=== PATIENT | female | born 1990 | race Two or more races ===

== ENCOUNTER 2021-01-15 06:58 | Inpatient (IN) | payer MEDICAID ==
[2021-01-15] MEDS ORDERED: Misoprostol 50 MCG (1/2 of 100 MCG) Tab VAG ONE (07:41)
[2021-01-15] MEDS ORDERED: Misoprostol 100 MCG Tab PO ONE (08:00)
[2021-01-15] MEDS ORDERED: Sodium Chloride 0.9% 10 ML Syringe FLUSH PRN ×2 (08:18→10:28)
--- NOTE | 2021-01-15 08:28 | PCM.LDHP ---
L&D History of Present Illness - General Date of Service: 01/15/21 (PROM, GDM GHTN) Admit Problem/Dx: Patient Status Order with Admit Dx/Problem 01/15/21 08:18 Patient Status [ADT] Routine Admission Diagnosis/Problem Admission Diagnosis/Problem Source of Information: Patient History Limitations: Reports: No Limitations - History of Present Illness Introduction:: 30 year old 39 2/7 weeks presents with PROM. history of GDM, gestation hypertension. Was going to do induction today for medical conditions when she S ROM at home clear fluid at 0630. CE 2/80/0 mid position, reactive nst and BPP in process. GBS neg Covid neg Amniodure positive ABO O pos HIV neg Timing/Duration: Reports: minutes: (3-4) Location, : Reports: Abdomen Severity: Mild Improves with: Reports: None Worsens with: Reports: None - Related Data Allergies/Adverse Reactions: Allergies Allergy/AdvReac Type Severity Reaction Status Date / Time amoxicillin Allergy Severe Anaphylactic Verified 01/15/21 08:23 Shock sumatriptan Allergy Severe Anaphylactic Verified 01/15/21 08:23 Shock Home Medications: Home Meds Aspirin [Halfprin] 81 mg PO DAILY 01/15/21 [History] Vits #93/Iron Fum/FA [ Formula Tablet] 1 each PO DAILY 01/15/21 [History] Past Medical History 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 History: Reports: : 2 Para: 1 LMP (Approximate): (SHREYAS 01/20/21) Social & Family History - Tobacco Use Tobacco Use Status *Q: Former Tobacco User Used Tobacco, but Quit: No - Caffeine Use Caffeine Use: Reports: None - Recreational Drug Use Recreational Drug Use: No H&P Review of Systems - Review of Systems: Review Of Systems: See Below General: Reports: No Symptoms HEENT: Reports: No Symptoms Pulmonary: Reports: No Symptoms Cardiovascular: Reports: No Symptoms Gastrointestinal: Reports: No Symptoms Genitourinary: Reports: No Symptoms Musculoskeletal: Reports: No Symptoms Skin: Reports: No Symptoms Psychiatric: Reports: No Symptoms Neurological: Reports: No Symptoms Hematologic/Lymphatic: Reports: No Symptoms Immunologic: Reports: No Symptoms L&D Exam - Exam Exam: See Below - Vital Signs Vital Signs: Last Vital Signs Temp 98 F 01/15/21 07:30 Pulse 84 01/15/21 07:30 Resp 16 01/15/21 07:30 BP 142/97 H 01/15/21 07:30 Pulse Ox 94 L 01/15/21 07:30 Weight: 240 lb - OB Specific Contraction Duration (sec): 60 Contraction Frequency (min): x1 Contraction Intensity: Mild Heart Rate (FHR) Variability: Moderate (6-25 bmp) Presentation: Right Occiput Transverse (ROT) - Mariano Score Mariano Score Cervix Position: Midposition Mariano Score Consistency: Soft Mariano Score Effacement: >80% Mariano Score Dilation: 1-2 cm Mariano Score Infant's Station: -1 ,0 Mariano Score Total: 9 - Exam General: Alert, Oriented HEENT: PERRLA Lungs: Clear to Auscultation Cardiovascular: Regular Rate, Regular Rhythm GI/Abdominal Exam: Soft, Non-Tender Rectal Exam: Normal Exam Genitourinary: Normal external exam, Cervical dilitation, Cervical fluid Back Exam: Normal Inspection, Full Range of Motion Extremities: Normal Inspection, Non-Tender, Pedal Edema Skin: Warm Neurological: Cranial Nerves Intact, Reflexes Equal Bilateral, Normal Tone Psychiatric: Alert, Normal Affect, Normal Mood - Patient Data Lab Results Last 24 hrs: Laboratory Results - last 24 hr 01/15/21 01/15/21 01/15/21 Range/Units 07:09 07:09 07:20 WBC 10.2 (4.5-11.0) K/uL RBC 4.45 (3.30-5.50) M/uL Hgb 12.0 (12.0-15.0) g/dL Hct 36.1 (36.0-48.0) % MCV 81 (80-98) fL MCH 27 (27-31) pg MCHC 33 (32-36) % Plt Count 228 (150-400) K/uL Neut % (Auto) 69 H (36-66) % Lymph % (Auto) 22 L (24-44) % [place] % (Auto) 7 H (2-6) % Eos % (Auto) 1 L (2-4) % Baso % (Auto) 0 (0-1) % Urine Color Yellow (YELLOW) Urine Appearance Slightly cloudy A (CLEAR) Urine pH 7.0 (5.0-8.0) Ur Specific [place] 1.020 (1.008-1.030) Urine Protein 30 H (NEGATIVE) mg/dL Urine Glucose (UA) Negative (NEGATIVE) mg/dL Urine Ketones 15 H (NEGATIVE) mg/dL Urine Occult Blood Moderate H (NEGATIVE) Urine Nitrite Negative (NEGATIVE) Urine Bilirubin Negative (NEGATIVE) Urine Urobilinogen 0.2 (0.2-1.0) EU/dL Ur Leukocyte Esterase Negative (NEGATIVE) Urine RBC 20-30 H (0-5) Urine WBC 5-10 H (0-5) Ur Epithelial Cells Moderate Amorphous Sediment Rare Urine Bacteria Many Urine Mucus Not seen Membrane Rupture Positive H (NEGATIVE) SARS CoV-2 RNA Rapid DIETER 01/15/21 Range/Units 07:32 WBC (4.5-11.0) K/uL RBC (3.30-5.50) M/uL Hgb (12.0-15.0) g/dL Hct (36.0-48.0) % MCV (80-98) fL MCH (27-31) pg MCHC (32-36) % Plt Count (150-400) K/uL Neut % (Auto) (36-66) % Lymph % (Auto) (24-44) % [place] % (Auto) (2-6) % Eos % (Auto) (2-4) % Baso % (Auto) (0-1) % Urine Color (YELLOW) Urine Appearance (CLEAR) Urine pH (5.0-8.0) Ur Specific [place] (1.008-1.030) Urine Protein (NEGATIVE) mg/dL Urine Glucose (UA) (NEGATIVE) mg/dL Urine Ketones (NEGATIVE) mg/dL Urine Occult Blood (NEGATIVE) Urine Nitrite (NEGATIVE) Urine Bilirubin (NEGATIVE) Urine Urobilinogen (0.2-1.0) EU/dL Ur Leukocyte Esterase (NEGATIVE) Urine RBC (0-5) Urine WBC (0-5) Ur Epithelial Cells Amorphous Sediment Urine Bacteria Urine Mucus Membrane Rupture (NEGATIVE) SARS CoV-2 RNA Rapid DIETER Negative Result Diagrams: 01/15/21 07:20 - Problem List (1) Gestational diabetes SNOMED Code(s): 28835153 ICD Code: O24.419 - GESTATIONAL DIABETES MELLITUS IN , UNSP CONTROL Status: Acute Current Visit: Yes (2) Gestational hypertension SNOMED Code(s): 890934676 ICD Code: O13.9 - GESTATIONAL HTN W/O SIGNIFICANT PROTEINURIA, UNSP TRIMESTER Status: Acute Current Visit: Yes (3) PROM with onset of labor within 24 hours of rupture SNOMED Code(s): 887986333 ICD Code: O42.00 - RENA ROM, ONSET LABOR W/N 24 HR OF RUPT, UNSP WEEKS OF GEST Status: Acute Current Visit: Yes Qualifiers: PROM gestational age: full term Qualified Code(s): O42.02 - Full-term premature rupture of membranes, onset of labor within 24 hours of rupture Problem List Initiated/Reviewed/Updated: Yes Orders Last 24hrs: Active Orders 24 hr Category Date Time Status Patient Status [ADT] Routine ADT 01/15/21 08:18 Ordered Antiembolic Devices [RC] .Routine Care 01/15/21 08:20 Ordered Communication Order [RC] ASDIRECTED Care 01/15/21 08:18 Ordered Heart Tones [RC] PER UNIT ROUTINE Care 01/15/21 08:18 Ordered Non Stress Test [RC] Click to Edit Care 01/15/21 08:18 Ordered Notify Provider Vital Signs [RC] PRN Care 01/15/21 08:18 Ordered Notify Provider [RC] PRN Care 01/15/21 08:18 Ordered VTE/DVT Education [RC] Click to Edit Care 01/15/21 08:20 Ordered Vital Signs [RC] PER UNIT ROUTINE Care 01/15/21 08:18 Ordered BPP w NST [US] Routine Exams 01/15/21 07:52 Ordered Sodium Chloride 0.9% [Saline Flush] Med 01/15/21 08:18 Ordered 10 ml FLUSH ASDIRECTED PRN miSOPROStoL [Cytotec] Med 01/15/21 08:30 Active 25 mcg PO Q2H DVT/VTE Prophylaxis Reflex [OM.PC] Routine Oth 01/15/21 08:18 Ordered Saline Lock Insert [OM.PC] Routine Oth 01/15/21 08:18 Ordered Resuscitation Status Routine Resus Stat 01/15/21 08:18 Ordered Medication Orders Misoprostol (Misoprostol 25 Mcg (1/4 Of 100 Mcg) Tab) 25 mcg PO Q2H ALEIDA Sodium Chloride (Sodium Chloride 0.9% 10 Ml Syringe) 10 ml FLUSH ASDIRECTED PRN PRN Reason: Keep Vein Open Assessment/Plan Comment:: 01/15/21 30 year old 39 2/7 week IUP with PROM this morning at 0630. GDM, stable well controlled Gestation hypertension, protein in urine this morning, normal PLT will draw PIH labs Plan reactive nst bpp6/8 movement 8/10 miso orally 25 mcg every 2 hours until active labor epidural when ready plan for vaginal delivery
[2021-01-15] MEDS: Misoprostol 25 MCG (1/4 of 100 MCG) Tab PO SCH ×3 (08:40→14:42)
[2021-01-15] MEDS ORDERED: Lidocaine 1% 50 ML MDV ONE (10:13)
[2021-01-15] MEDS ORDERED: Naloxone 0.4 MG/ML SDV IVPUSH PRN (10:28)
[2021-01-15] MEDS ORDERED: diphenhydrAMINE 50 MG/ML SDV IVPUSH PRN ×2 (10:28)
[2021-01-15] MEDS ORDERED: Lactated Ringers 1,000 ML IV ONE (10:28)
[2021-01-15] MEDS ORDERED: ePHEDrine 50 MG/ML SDV IVPUSH PRN ×2 (10:28)
[2021-01-15] MEDS ORDERED: Ropivacaine 200 MG in Premix Bag 1 BAG EPIDUR SCH (10:30)
[2021-01-15] MEDS ORDERED: ePHEDrine 50 MG/ML SDV ONE (10:36)
[2021-01-15] MEDS ORDERED: Ondansetron 4 MG/2 ML SDV IVPUSH PRN (10:39)
--- NOTE | 2021-01-15 11:51 | US ---
BPP w NST INDICATION: GDM, gestational hypertension COMPARISON: None FINDINGS: Single live IUP in: Cephalic position. heart rate: 132 BPM. Biophysical profile score: 8/8. SIN: 8.6 cm. IMPRESSION: Normal biophysical profile score of 8/8. SIN is 8.6 cm
--- NOTE | 2021-01-15 12:28 | ANES ---
DATE OF SERVICE: 01/15/2021 INDICATIONS: Connor is a 30-year-old female in our Obstetric Unit with Nichole Melara CNM. I was asked to consult for labor epidural placement. Upon arrival, I discussed with the patient her past history as well as risks and benefits of the procedure and reviewed lab work, found no contraindication to epidural placement. At that time, I had her consent signed. TECHNIQUE: The patient was seated at the edge of the bed. Betadine prep x3 to lumbar region. Sterile drape was placed, 1% lidocaine skin wheal as well as deep at the L3-L4 region approximately. A 17-gauge Tuohy was placed to loss of resistance. Negative CSF, negative heme, negative paresthesia. I was able to thread the catheter to the tip of the needle and was not able to thread beyond that. Reassessed, loss of resistance was continued procedure. I removed the needle and catheter, prepared to access same level. 17- gauge Tuohy was placed to loss of resistance. Negative CSF, negative heme, negative paresthesia. I then placed the catheter at 12 cm. I removed the needle, a test dose of 3 mL of 1.5% lidocaine and 1:200,000 epinephrine, negative sequelae. Catheter was secured and I dosed it with 12 mL of 0.2% ropivacaine. I then began an infusion of the same 12 mL of 0.2% ropivacaine. She tolerated the procedure quite well. Please refer to nurse's notes for vital signs and neuro status, which were unchanged and within normal limits. I discussed with nurse what I had given. Eric Arias CRNA /[id number]
[2021-01-15] MEDS ORDERED: Lactated Ringers 1,000 ML IV SCH (12:30)
[2021-01-15] MEDS ORDERED: Ropivacaine 100 ML ONE (12:42)
[2021-01-15] MEDS ORDERED: Hydrocortisone 2.5% Crm 30 GM Tube TOP PRN (14:28)
[2021-01-15] MEDS ORDERED: Witch Hazel Medicated Pads 100/Jar TOP ONE (14:28)
[2021-01-15] MEDS ORDERED: Acetaminophen 325 MG Tab, 50 Tab Bulk Bottle PO PRN (14:31)
[2021-01-15] MEDS ORDERED: Ibuprofen 200 MG Tab, 24 Tab Bulk Bottle PO PRN (14:31)
--- NOTE | 2021-01-15 14:44 | PCM.DEL ---
L & D Note - General Info Date of Service: 01/15/21 Mother's Due Date: 01/20/21 - Delivery Note Labor: Spontaneous Cervical Ripening Method: Misoprostil Delivery Outcome: Livebirth Delivery Mode: Spontaneous Presentation: Right Occiput Transverse (ROT) Nuchal Cord: None Anesthesia Type: Epidural Amniotic Fluid Description: Clear Episiotomy Type: None Laceration: None Placenta: Intact, Spontaneous Cord: 3 Vessels Estimated Blood Loss: 100 Resuscitation Needed: Yes : Bulb Syringe, Stimulated, Warmed, [place] Used, Warmer Used Provider: Nichole Melara Score 1 min: 8 Score 5 min: 9 Post Delivery Events: Shoulder Dystocia Second Stage Interventions: Reports: Second Nurse Reviewed Heart Tones, Encouragement Given, Pushing, McRobert's Position, Pushing, Squat Bar Pulling on Sheet Delivery Comments (Free Text/Narrative):: 01/15/21 This 30 year old G2 now P2 who is 39 2/7 weeks gestation delivered at 1400 via in [place] then rotated to direct OA viable female over an intact perineum. There was a shoulder dystocia after delivery of the head. RN doing suprapubic pressure. Baby rotated to direct OA and pulled out, super tight fit. No nuchal cord, the cord was clamped and cut. Baby cried spontaneously and was taken to the warmer where she was dried and stimulated. Apgars of 8 and 9. No lacerations of the cervix, vagina, perineum or rectum. EBL 100cc Active management of the third stage was used. Mother and baby to post in stable condition. First stage 4171-4402 Second stage 1655-0434 third stage 5664-4176 weight 8-5 Induction Criteria - Mariano Score Mariano Score Dilation: 1-2 cm Mariano Score Effacement: >80% Mariano Score 's Station: -1 ,0 Mariano Score Consistency: Soft Mariano Score Cervix Position: Midposition Mariano Score Total: 9 Mariano Score Presenting Part: Reports: Cephalic - Augmentation Estimated Pelvis: Reports: Adequate Weight Estimated:: Reports: AGA Reassuring Monitoring Strip: Yes Absence of Tachy Systole: Yes - General Info Date of Service: 01/15/21 Admission Dx/Problem (Free Text): Patient Status Order with Admit Dx/Problem 01/15/21 08:18 Patient Status [ADT] Routine Admission Diagnosis/Problem Admission Diagnosis/Problem Functional Status: Reports: Pain Controlled - Review of Systems General: Reports: No Symptoms HEENT: Reports: No Symptoms Pulmonary: Reports: No Symptoms Cardiovascular: Reports: No Symptoms Gastrointestinal: Reports: No Symptoms Genitourinary: Reports: No Symptoms Musculoskeletal: Reports: No Symptoms Skin: Reports: No Symptoms Neurological: Reports: No Symptoms Psychiatric: Reports: No Symptoms - Patient Data Vitals - Most Recent: Last Vital Signs Temp 97.7 F 01/15/21 11:45 Pulse 86 01/15/21 12:00 Resp 20 01/15/21 12:00 BP 127/78 01/15/21 12:00 Pulse Ox 97 01/15/21 12:00 Weight - Most Recent: 240 lb I&O - Last 24 Hours: Intake & Output 01/14/21 01/15/21 01/15/21 22:59 06:59 14:59 Intake Total 240 Balance 240 Lab Results Last 24 Hours: Laboratory Results - last 24 hr 01/15/21 01/15/21 01/15/21 Range/Units 07:09 07:09 07:20 WBC 10.2 (4.5-11.0) K/uL RBC 4.45 (3.30-5.50) M/uL Hgb 12.0 (12.0-15.0) g/dL Hct 36.1 (36.0-48.0) % MCV 81 (80-98) fL MCH 27 (27-31) pg MCHC 33 (32-36) % Plt Count 228 (150-400) K/uL Neut % (Auto) 69 H (36-66) % Lymph % (Auto) 22 L (24-44) % [place] % (Auto) 7 H (2-6) % Eos % (Auto) 1 L (2-4) % Baso % (Auto) 0 (0-1) % Sodium (140-148) mmol/L Potassium (3.6-5.2) mmol/L Chloride (100-108) mmol/L Carbon Dioxide (21-32) mmol/L Anion Gap (5.0-14.0) mmol/L BUN (7-18) mg/dL Creatinine (0.6-1.0) mg/dL Est Cr Clr Drug Dosing mL/min Estimated GFR (MDRD) (>60) Glucose (74-106) mg/dL Uric Acid (2.6-6.2) mg/dL Calcium (8.5-10.1) mg/dL Magnesium (1.8-2.4) mg/dL Total Bilirubin (0.2-1.0) mg/dL AST (15-37) U/L ALT (12-78) U/L Alkaline Phosphatase (46-116) U/L Lactate Dehydrogenase (82-234) U/L Total Protein (6.4-8.2) g/dL Albumin (3.4-5.0) g/dL Globulin (2.3-3.5) g/dL Albumin/Globulin Ratio (1.2-2.2) Urine Color Yellow (YELLOW) Urine Appearance Slightly cloudy A (CLEAR) Urine pH 7.0 (5.0-8.0) Ur Specific [place] 1.020 (1.008-1.030) Urine Protein 30 H (NEGATIVE) mg/dL Urine Glucose (UA) Negative (NEGATIVE) mg/dL Urine Ketones 15 H (NEGATIVE) mg/dL Urine Occult Blood Moderate H (NEGATIVE) Urine Nitrite Negative (NEGATIVE) Urine Bilirubin Negative (NEGATIVE) Urine Urobilinogen 0.2 (0.2-1.0) EU/dL Ur Leukocyte Esterase Negative (NEGATIVE) Urine RBC 20-30 H (0-5) Urine WBC 5-10 H (0-5) Ur Epithelial Cells Moderate Amorphous Sediment Rare Urine Bacteria Many Urine Mucus Not seen Ur Random Creatinine (20.0-370.0) mg/dL U Random Total Protein (6.0-11.9) mg/dL Protein/Creatinin Ratio (21.0-161.0) mg/g Membrane Rupture Positive H (NEGATIVE) SARS CoV-2 RNA Rapid DIETER 01/15/21 01/15/21 01/15/21 Range/Units 07:32 08:35 08:35 WBC (4.5-11.0) K/uL RBC (3.30-5.50) M/uL Hgb (12.0-15.0) g/dL Hct (36.0-48.0) % MCV (80-98) fL MCH (27-31) pg MCHC (32-36) % Plt Count (150-400) K/uL Neut % (Auto) (36-66) % Lymph % (Auto) (24-44) % [place] % (Auto) (2-6) % Eos % (Auto) (2-4) % Baso % (Auto) (0-1) % Sodium (140-148) mmol/L Potassium (3.6-5.2) mmol/L Chloride (100-108) mmol/L Carbon Dioxide (21-32) mmol/L Anion Gap (5.0-14.0) mmol/L BUN (7-18) mg/dL Creatinine (0.6-1.0) mg/dL Est Cr Clr Drug Dosing mL/min Estimated GFR (MDRD) (>60) Glucose (74-106) mg/dL Uric Acid 4.3 (2.6-6.2) mg/dL Calcium (8.5-10.1) mg/dL Magnesium (1.8-2.4) mg/dL Total Bilirubin (0.2-1.0) mg/dL AST (15-37) U/L ALT (12-78) U/L Alkaline Phosphatase (46-116) U/L Lactate Dehydrogenase (82-234) U/L Total Protein (6.4-8.2) g/dL Albumin (3.4-5.0) g/dL Globulin (2.3-3.5) g/dL Albumin/Globulin Ratio (1.2-2.2) Urine Color (YELLOW) Urine Appearance (CLEAR) Urine pH (5.0-8.0) Ur Specific [place] (1.008-1.030) Urine Protein (NEGATIVE) mg/dL Urine Glucose (UA) (NEGATIVE) mg/dL Urine Ketones (NEGATIVE) mg/dL Urine Occult Blood (NEGATIVE) Urine Nitrite (NEGATIVE) Urine Bilirubin (NEGATIVE) Urine Urobilinogen (0.2-1.0) EU/dL Ur Leukocyte Esterase (NEGATIVE) Urine RBC (0-5) Urine WBC (0-5) Ur Epithelial Cells Amorphous Sediment Urine Bacteria Urine Mucus Ur Random Creatinine 116.1 (20.0-370.0) mg/dL U Random Total Protein 52.6 H (6.0-11.9) mg/dL Protein/Creatinin Ratio 453.1 H (21.0-161.0) mg/g Membrane Rupture (NEGATIVE) SARS CoV-2 RNA Rapid DIETER Negative 01/15/21 Range/Units 08:35 WBC (4.5-11.0) K/uL RBC (3.30-5.50) M/uL Hgb (12.0-15.0) g/dL Hct (36.0-48.0) % MCV (80-98) fL MCH (27-31) pg MCHC (32-36) % Plt Count (150-400) K/uL Neut % (Auto) (36-66) % Lymph % (Auto) (24-44) % [place] % (Auto) (2-6) % Eos % (Auto) (2-4) % Baso % (Auto) (0-1) % Sodium 141 (140-148) mmol/L Potassium 3.8 (3.6-5.2) mmol/L Chloride 107 (100-108) mmol/L Carbon Dioxide 20 L (21-32) mmol/L Anion Gap 17.8 H (5.0-14.0) mmol/L BUN 11 (7-18) mg/dL Creatinine 0.7 (0.6-1.0) mg/dL Est Cr Clr Drug Dosing 98.98 mL/min Estimated GFR (MDRD) > 60 (>60) Glucose 66 L (74-106) mg/dL Uric Acid (2.6-6.2) mg/dL Calcium 8.8 (8.5-10.1) mg/dL Magnesium 1.5 L (1.8-2.4) mg/dL Total Bilirubin 0.3 (0.2-1.0) mg/dL AST 17 (15-37) U/L ALT 18 (12-78) U/L Alkaline Phosphatase 140 H (46-116) U/L Lactate Dehydrogenase 183 (82-234) U/L Total Protein 5.9 L (6.4-8.2) g/dL Albumin 2.5 L (3.4-5.0) g/dL Globulin 3.4 (2.3-3.5) g/dL Albumin/Globulin Ratio 0.7 L (1.2-2.2) Urine Color (YELLOW) Urine Appearance (CLEAR) Urine pH (5.0-8.0) Ur Specific [place] (1.008-1.030) Urine Protein (NEGATIVE) mg/dL Urine Glucose (UA) (NEGATIVE) mg/dL Urine Ketones (NEGATIVE) mg/dL Urine Occult Blood (NEGATIVE) Urine Nitrite (NEGATIVE) Urine Bilirubin (NEGATIVE) Urine Urobilinogen (0.2-1.0) EU/dL Ur Leukocyte Esterase (NEGATIVE) Urine RBC (0-5) Urine WBC (0-5) Ur Epithelial Cells Amorphous Sediment Urine Bacteria Urine Mucus Ur Random Creatinine (20.0-370.0) mg/dL U Random Total Protein (6.0-11.9) mg/dL Protein/Creatinin Ratio (21.0-161.0) mg/g Membrane Rupture (NEGATIVE) SARS CoV-2 RNA Rapid DIETER Med Orders - Current: Current Medications Benzocaine (Benzocaine 20% Top [place] 56 Gm Bottle) 0 gm TOP Q4H ONE Stop: 01/15/21 14:29 Diphenhydramine HCl (Diphenhydramine 50 Mg/Ml Sdv) 25 mg IVPUSH Q6H PRN PRN Reason: Itching Diphenhydramine HCl (Diphenhydramine 50 Mg/Ml Sdv) 50 mg IVPUSH Q6H PRN PRN Reason: Itching Emollient Ointment (Lanolin 100% Cream 40 Gm Tube) 1 gm TOP ASDIRECTED ONE Stop: 01/15/21 14:29 Ephedrine Sulfate (Ephedrine 50 Mg/Ml Sdv) 10 mg IVPUSH ASDIRECTED PRN PRN Reason: Hypotension Hydrocortisone (Hydrocortisone 2.5% Crm 30 Gm Tube) 1 gm TOP ASDIRECTED PRN PRN Reason: Itching Ropivacaine 200 mg/ Premix 100 mls @ 0 mls/hr EPIDUR ASDIRECTED [facility] Lactated Ringer's (Ringers, Lactated) 1,000 mls @ 125 mls/hr IV ASDIRECTED [facility] Misoprostol (Misoprostol 25 Mcg (1/4 Of 100 Mcg) Tab) 25 mcg PO Q2H [facility] Last Admin: 01/15/21 12:21 Dose: Not Given Documented by: Naloxone HCl (Naloxone 0.4 Mg/Ml Sdv) 0.1 mg IVPUSH ASDIRECTED PRN PRN Reason: Oversedation Ondansetron HCl (Ondansetron 4 Mg/2 Ml Sdv) 4 mg IVPUSH Q4H PRN PRN Reason: Nausea/Vomiting Last Admin: 01/15/21 10:55 Dose: 4 mg Documented by: Sodium Chloride (Sodium Chloride 0.9% 10 Ml Syringe) 10 ml FLUSH ASDIRECTED PRN PRN Reason: Keep Vein Open Sodium Chloride (Sodium Chloride 0.9% 10 Ml Syringe) 10 ml FLUSH ASDIRECTED PRN PRN Reason: Keep Vein Open Witch Ceci (Witch Ceci Medicated Pads 100/Jar) 1 pad TOP ASDIRECTED ONE Stop: 01/15/21 14:29 Discontinued Medications Ephedrine Sulfate (Ephedrine 50 Mg/Ml Sdv) Confirm Administered Dose 50 mg .ROUTE .STK-MED ONE Stop: 01/15/21 10:37 Last Admin: 01/15/21 11:36 Dose: Not Given Documented by: Oxytocin/Sodium Chloride (Pitocin In Ns 20 Units/1,000 Ml) Confirm Administered Dose 20 unit in 1,000 mls @ as directed .ROUTE .STK-MED ONE Stop: 01/15/21 10:14 Last Admin: 01/15/21 11:38 Dose: Not Given Documented by: Lactated Ringer's (Ringers, Lactated) 1,000 mls @ 999 mls/hr IV .BOLUS ONE Stop: 01/15/21 11:28 Last Admin: 01/15/21 10:20 Dose: 999 mls/hr Documented by: Ropivacaine (Naropin 0.2%) Confirm Administered Dose 100 mls @ as directed .ROUTE .STK-MED ONE Stop: 01/15/21 12:43 Lidocaine HCl (Lidocaine 1% 50 Ml Mdv) Confirm Administered Dose 50 ml .ROUTE .STK-MED ONE Stop: 01/15/21 10:14 Misoprostol (Misoprostol 50 Mcg (1/2 Of 100 Mcg) Tab) 50 mcg VAG ONETIME ONE Stop: 01/15/21 07:42 Last Admin: 01/15/21 07:57 Dose: Not Given Documented by: Misoprostol (Misoprostol 100 Mcg Tab) 100 mcg PO ONETIME ONE Stop: 01/15/21 08:01 Last Admin: 01/15/21 08:20 Dose: Not Given Documented by: - Exam General: Alert, Oriented HEENT: Pupils Equal, Pupils Reactive, Mucous Membr. Moist/[place] Neck: Supple Lungs: Clear to Auscultation, Normal Respiratory Effort Cardiovascular: Regular Rate, Regular Rhythm GI/Abdominal Exam: Normal Bowel Sounds, Soft, Non-Tender (Female) Exam: Normal External Exam, Enlarged Uterus, Vaginal Bleeding Back Exam: Normal Inspection, Full Range of Motion Extremities: Normal Inspection, Normal Range of Motion, Non-Tender, Pedal Edema Skin: Warm, Dry, Intact Neurological: No New Focal Deficit Psy/Mental Status: Alert, Normal Affect, Normal Mood - Problem List & Annotations (1) Gestational diabetes SNOMED Code(s): 28150989 Code(s): O24.419 - GESTATIONAL DIABETES MELLITUS IN , UNSP CONTROL Status: Acute Current Visit: Yes (2) Gestational hypertension SNOMED Code(s): 051199270 Code(s): O13.9 - GESTATIONAL HTN W/O SIGNIFICANT PROTEINURIA, UNSP TRIMESTER Status: Acute Current Visit: Yes Qualifiers: Trimester: third trimester Qualified Code(s): O13.3 - Gestational [-induced] hypertension without significant proteinuria, third trimester (3) PROM with onset of labor within 24 hours of rupture SNOMED Code(s): 715072929 Code(s): O42.00 - RENA ROM, ONSET LABOR W/N 24 HR OF RUPT, UNSP WEEKS OF GEST Status: Acute Priority: High Current Visit: Yes Qualifiers: PROM gestational age: full term Qualified Code(s): O42.02 - Full-term premature rupture of membranes, onset of labor within 24 hours of rupture (4) Shoulder dystocia during labor and delivery, delivered SNOMED Code(s): 869946626, 629006555 Code(s): O66.0 - OBSTRUCTED LABOR DUE TO SHOULDER DYSTOCIA Status: Acute Current Visit: Yes (5) Vaginal delivery SNOMED Code(s): 692778701 Code(s): O80 - ENCOUNTER FOR FULL-TERM UNCOMPLICATED DELIVERY Status: Acute Current Visit: Yes - Problem List Review Problem List Initiated/Reviewed/Updated: Yes - My Orders Last 24 Hours: My Active Orders 01/15/21 08:18 Communication Order [RC] ASDIRECTED Heart Tones [RC] PER UNIT ROUTINE Non Stress Test [RC] Click to Edit Notify Provider Vital Signs [RC] PRN Notify Provider [RC] PRN Vital Signs [RC] PER UNIT ROUTINE Sodium Chloride 0.9% [Saline Flush] 10 ml FLUSH ASDIRECTED PRN DVT/VTE Prophylaxis Reflex [OM.PC] Routine Saline Lock Insert [OM.PC] Routine Resuscitation Status Routine 01/15/21 08:20 Antiembolic Devices [RC] .Routine VTE/DVT Education [RC] Click to Edit 01/15/21 08:30 miSOPROStoL [Cytotec] 25 mcg PO Q2H 01/15/21 10:39 Ondansetron [Zofran] 4 mg IVPUSH Q4H PRN 01/15/21 12:30 Lactated Ringers [Ringers, Lactated] 1,000 ml IV ASDIRECTED 01/15/21 14:28 Benzocaine [Uenp-F-Kidkhix 20% [place]uthrie] See Dose Instructions TOP Q4H ONE Hydrocortisone [Proctozone-HC 2.5% Crm] 1 gm TOP ASDIRECTED PRN Lanolin [Lansinoh HPA] 1 gm TOP ASDIRECTED ONE witch Ceci [Tucks] 1 pad TOP ASDIRECTED ONE 01/15/21 14:29 Patient Status [ADT] Routine Vital Signs [RC] PFP Ice Therapy [OM.PC] Per Unit Routine Perineal Care [OM.PC] Per Unit Routine Peripheral IV Discontinue [OM.PC] Routine Sitz Bath [OM.PC] Per Unit Routine 01/15/21 14:31 Acetaminophen [Tylenol Bulk Bottle] See Dose Instructions PO Q4H PRN Ibuprofen [Motrin Bulk Bottle] 600 mg PO Q6H PRN 01/15/21 Dinner Regular Diet [DIET] 01/16/21 05:11 CBC W/O DIFF,HEMOGRAM [HEME] AM - Assessment Assessment:: 01/15/21 with shoulder dystocia at 39 2/7 weeks, GDM and gestational hypertension female - Plan Plan:: 01/15/21 30 year old 39 2/7 week IUP with PROM this morning at 0630. GDM, stable well controlled Gestation hypertension, protein in urine this morning, normal PLT will draw PIH labs Plan reactive nst bpp6/8 movement 8 miso orally 25 mcg every 2 hours until active labor epidural when ready plan for vaginal delivery 01/15/21 routine cares support 24-48 hour stay
[2021-01-15] MEDS ORDERED: Lanolin 100% Cream 40 GM Tube TOP ONE (15:00)
[2021-01-15] MEDS ORDERED: Benzocaine 20% Top Spray 56 GM Bottle TOP ONE (15:00)
[2021-01-15] MEDS ORDERED: Hydrocortisone 2.5% Crm 30 GM Tube ONE (18:02)
--- NOTE | 2021-01-16 08:22 | PCM.PNPP ---
- General Info Date of Service: 01/16/21 (PPD 1 D/C) Admission Dx/Problem (Free Text): Patient Status Order with Admit Dx/Problem 01/15/21 08:18 Patient Status [ADT] Routine Admission Diagnosis/Problem Admission Diagnosis/Problem Functional Status: Reports: Pain Controlled - Review of Systems General: Reports: No Symptoms HEENT: Reports: No Symptoms Pulmonary: Reports: No Symptoms Cardiovascular: Reports: No Symptoms Gastrointestinal: Reports: No Symptoms Genitourinary: Reports: No Symptoms Musculoskeletal: Reports: No Symptoms Skin: Reports: No Symptoms Neurological: Reports: No Symptoms Psychiatric: Reports: No Symptoms - General Info Date of Service: 01/16/21 - Patient Data Vital Signs - Most Recent: Last Vital Signs Temp 98 F 01/16/21 03:30 Pulse 75 01/16/21 03:30 Resp 18 01/16/21 03:30 BP 128/82 01/16/21 03:30 Pulse Ox 97 01/16/21 03:30 Weight - Most Recent: 240 lb I&O - Last 24 Hours: Intake & Output 01/15/21 01/16/21 01/16/21 22:59 06:59 14:59 Intake Total 3630 1000 Balance 3630 1000 Lab Results - Last 24 Hours: Laboratory Results - last 24 hr 01/15/21 01/15/21 01/15/21 Range/Units 08:35 08:35 08:35 WBC (4.5-11.0) K/uL RBC (3.30-5.50) M/uL Hgb (12.0-15.0) g/dL Hct (36.0-48.0) % MCV (80-98) fL MCH (27-31) pg MCHC (32-36) % Plt Count (150-400) K/uL Sodium 141 (140-148) mmol/L Potassium 3.8 (3.6-5.2) mmol/L Chloride 107 (100-108) mmol/L Carbon Dioxide 20 L (21-32) mmol/L Anion Gap 17.8 H (5.0-14.0) mmol/L BUN 11 (7-18) mg/dL Creatinine 0.7 (0.6-1.0) mg/dL Est Cr Clr Drug Dosing 98.98 mL/min Estimated GFR (MDRD) > 60 (>60) Glucose 66 L (74-106) mg/dL Uric Acid 4.3 (2.6-6.2) mg/dL Calcium 8.8 (8.5-10.1) mg/dL Magnesium 1.5 L (1.8-2.4) mg/dL Total Bilirubin 0.3 (0.2-1.0) mg/dL AST 17 (15-37) U/L ALT 18 (12-78) U/L Alkaline Phosphatase 140 H (46-116) U/L Lactate Dehydrogenase 183 (82-234) U/L Total Protein 5.9 L (6.4-8.2) g/dL Albumin 2.5 L (3.4-5.0) g/dL Globulin 3.4 (2.3-3.5) g/dL Albumin/Globulin Ratio 0.7 L (1.2-2.2) Ur Random Creatinine 116.1 (20.0-370.0) mg/dL U Random Total Protein 52.6 H (6.0-11.9) mg/dL Protein/Creatinin Ratio 453.1 H (21.0-161.0) mg/g 01/16/21 Range/Units 05:56 WBC 13.9 H (4.5-11.0) K/uL RBC 4.20 (3.30-5.50) M/uL Hgb 11.3 L (12.0-15.0) g/dL Hct 34.6 L (36.0-48.0) % MCV 82 (80-98) fL MCH 27 (27-31) pg MCHC 33 (32-36) % Plt Count 200 (150-400) K/uL Sodium (140-148) mmol/L Potassium (3.6-5.2) mmol/L Chloride (100-108) mmol/L Carbon Dioxide (21-32) mmol/L Anion Gap (5.0-14.0) mmol/L BUN (7-18) mg/dL Creatinine (0.6-1.0) mg/dL Est Cr Clr Drug Dosing mL/min Estimated GFR (MDRD) (>60) Glucose (74-106) mg/dL Uric Acid (2.6-6.2) mg/dL Calcium (8.5-10.1) mg/dL Magnesium (1.8-2.4) mg/dL Total Bilirubin (0.2-1.0) mg/dL AST (15-37) U/L ALT (12-78) U/L Alkaline Phosphatase (46-116) U/L Lactate Dehydrogenase (82-234) U/L Total Protein (6.4-8.2) g/dL Albumin (3.4-5.0) g/dL Globulin (2.3-3.5) g/dL Albumin/Globulin Ratio (1.2-2.2) Ur Random Creatinine (20.0-370.0) mg/dL U Random Total Protein (6.0-11.9) mg/dL Protein/Creatinin Ratio (21.0-161.0) mg/g Med Orders - Current: Current Medications Acetaminophen (Acetaminophen 325 Mg Tab, 50 Tab Bulk Bottle) 325 - 650 mg PO Q4H PRN PRN Reason: Pain Last Admin: 01/15/21 16:15 Dose: 1 bottle Documented by: Hydrocortisone (Hydrocortisone 2.5% Crm 30 Gm Tube) 1 gm TOP ASDIRECTED PRN PRN Reason: Itching Last Admin: 01/15/21 18:49 Dose: 1 applic Documented by: Ibuprofen (Ibuprofen 200 Mg Tab, 24 Tab Bulk Bottle) 600 mg PO Q6H PRN PRN Reason: Pain Last Admin: 01/15/21 16:15 Dose: 1 bottle Documented by: Ondansetron HCl (Ondansetron 4 Mg/2 Ml Sdv) 4 mg IVPUSH Q4H PRN PRN Reason: Nausea/Vomiting Last Admin: 01/15/21 10:55 Dose: 4 mg Documented by: Sodium Chloride (Sodium Chloride 0.9% 10 Ml Syringe) 10 ml FLUSH ASDIRECTED PRN PRN Reason: Keep Vein Open Discontinued Medications Benzocaine (Benzocaine 20% Top [place] 56 Gm Bottle) 0 gm TOP Q4H ONE Stop: 01/15/21 15:01 Last Admin: 01/15/21 16:15 Dose: 1 bottle Documented by: Diphenhydramine HCl (Diphenhydramine 50 Mg/Ml Sdv) 25 mg IVPUSH Q6H PRN PRN Reason: Itching Diphenhydramine HCl (Diphenhydramine 50 Mg/Ml Sdv) 50 mg IVPUSH Q6H PRN PRN Reason: Itching Emollient Ointment (Lanolin 100% Cream 40 Gm Tube) 1 gm TOP ASDIRECTED ONE Stop: 01/15/21 15:01 Last Admin: 01/15/21 16:14 Dose: 1 tube Documented by: Ephedrine Sulfate (Ephedrine 50 Mg/Ml Sdv) 10 mg IVPUSH ASDIRECTED PRN PRN Reason: Hypotension Ephedrine Sulfate (Ephedrine 50 Mg/Ml Sdv) Confirm Administered Dose 50 mg .ROUTE .[facility] ONE Stop: 01/15/21 10:37 Last Admin: 01/15/21 11:36 Dose: Not Given Documented by: Hydrocortisone (Hydrocortisone 2.5% Crm 30 Gm Tube) Confirm Administered Dose 30 gm .ROUTE .[facility] ONE Stop: 01/15/21 18:03 Last Admin: 01/15/21 18:51 Dose: Not Given Documented by: Oxytocin/Sodium Chloride (Pitocin In Ns 20 Units/1,000 Ml) Confirm Administered Dose 20 unit in 1,000 mls @ as directed .ROUTE .[facility] ONE Stop: 01/15/21 10:14 Last Admin: 01/15/21 11:38 Dose: Not Given Documented by: Ropivacaine 200 mg/ Premix 100 mls @ 0 mls/hr EPIDUR ASDIRECTED [facility] Lactated Ringer's (Ringers, Lactated) 1,000 mls @ 999 mls/hr IV .BOLUS ONE Stop: 01/15/21 11:28 Last Admin: 01/15/21 10:20 Dose: 999 mls/hr Documented by: Lactated Ringer's (Ringers, Lactated) 1,000 mls @ 125 mls/hr IV ASDIRECTED [facility] Last Infusion: 01/15/21 14:05 Dose: 25 mls/hr Documented by: Ropivacaine (Naropin 0.2%) Confirm Administered Dose 100 mls @ as directed .ROUTE .[facility] ONE Stop: 01/15/21 12:43 Oxytocin/Sodium Chloride (Pitocin In Ns 20 Units/1,000 Ml) 20 unit in 1,000 mls @ 999 mls/hr IV ONETIME ONE; Protocol Stop: 01/15/21 11:13 Last Admin: 01/15/21 14:05 Dose: 999 mls/hr, 999 mls/hr Documented by: Lidocaine HCl (Lidocaine 1% 50 Ml Mdv) Confirm Administered Dose 50 ml .ROUTE .[facility] ONE Stop: 01/15/21 10:14 Last Admin: 01/15/21 14:42 Dose: Not Given Documented by: Misoprostol (Misoprostol 50 Mcg (1/2 Of 100 Mcg) Tab) 50 mcg VAG ONETIME ONE Stop: 01/15/21 07:42 Last Admin: 01/15/21 07:57 Dose: Not Given Documented by: Misoprostol (Misoprostol 100 Mcg Tab) 100 mcg PO ONETIME ONE Stop: 01/15/21 08:01 Last Admin: 01/15/21 08:20 Dose: Not Given Documented by: Misoprostol (Misoprostol 25 Mcg (1/4 Of 100 Mcg) Tab) 25 mcg PO Q2H ALIEDA Last Admin: 01/15/21 14:42 Dose: Not Given Documented by: Naloxone HCl (Naloxone 0.4 Mg/Ml Sdv) 0.1 mg IVPUSH ASDIRECTED PRN PRN Reason: Oversedation Sodium Chloride (Sodium Chloride 0.9% 10 Ml Syringe) 10 ml FLUSH ASDIRECTED PRN PRN Reason: Keep Vein Open Witch Ceci (Witch Ceci Medicated Pads 100/Jar) 1 pad TOP ASDIRECTED ONE Stop: 01/15/21 14:29 Last Admin: 01/15/21 16:15 Dose: 1 pad Documented by: - Infant Interaction Infant Disposition, : [place] in Room with Family Interaction: Holding Infant Infant Feeding: Breastfed Infant; Nursed Well Support Person: - Recovery Exam Fundal Tone: Firm Fundal Level: At Umbilicus Fundal Placement: Midline Lochia Amount: Small, Moderate Lochia Color: Rubra/Red Perineum Description: Intact, Minimal Bruising/Swelling, Hemorrhoids Episiotomy/Laceration: None Bladder Status: Voiding - Exam General: Alert, Oriented HEENT: Pupils Equal, Pupils Reactive Lungs: Clear to Auscultation, Normal Respiratory Effort Cardiovascular: Regular Rate, Regular Rhythm GI/Abdominal Exam: Normal Bowel Sounds, Non-Tender Extremities: No Pedal Edema, Normal Capillary Refill Skin: Warm Psy/Mental Status: Alert, Normal Affect, Normal Mood - Problem List & Annotations (1) Gestational diabetes SNOMED Code(s): 71757222 Code(s): O24.419 - GESTATIONAL DIABETES MELLITUS IN , UNSP CONTROL Status: Acute Current Visit: Yes Qualifiers: Gestational diabetes mellitus control: diet-controlled Trimester: third trimester Qualified Code(s): O24.410 - Gestational diabetes mellitus in , diet controlled (2) Gestational hypertension SNOMED Code(s): 255301121 Code(s): O13.9 - GESTATIONAL HTN W/O SIGNIFICANT PROTEINURIA, UNSP TRIMESTER Status: Acute Current Visit: Yes Qualifiers: Trimester: third trimester Qualified Code(s): O13.3 - Gestational [-induced] hypertension without significant proteinuria, third trimester (3) PROM with onset of labor within 24 hours of rupture SNOMED Code(s): 006779409 Code(s): O42.00 - RENA ROM, ONSET LABOR W/N 24 HR OF RUPT, UNSP WEEKS OF GEST Status: Acute Priority: High Current Visit: Yes Qualifiers: PROM gestational age: full term Qualified Code(s): O42.02 - Full-term premature rupture of membranes, onset of labor within 24 hours of rupture (4) Shoulder dystocia during labor and delivery, delivered SNOMED Code(s): 796689186, 441575385 Code(s): O66.0 - OBSTRUCTED LABOR DUE TO SHOULDER DYSTOCIA Status: Acute Current Visit: Yes (5) Vaginal delivery SNOMED Code(s): 683863845 Code(s): O80 - ENCOUNTER FOR FULL-TERM UNCOMPLICATED DELIVERY Status: Acute Current Visit: Yes - Problem List Review Problem List Initiated/Reviewed/Updated: Yes - My Orders Last 24 Hours: My Active Orders 01/15/21 08:18 Notify Provider Vital Signs [RC] PRN Notify Provider [RC] PRN Vital Signs [RC] PER UNIT ROUTINE Sodium Chloride 0.9% [Saline Flush] 10 ml FLUSH ASDIRECTED PRN DVT/VTE Prophylaxis Reflex [OM.PC] Routine Saline Lock Insert [OM.PC] Routine Resuscitation Status Routine 01/15/21 08:20 Antiembolic Devices [RC] .Routine VTE/DVT Education [RC] Click to Edit 01/15/21 10:39 Ondansetron [Zofran] 4 mg IVPUSH Q4H PRN 01/15/21 14:28 Hydrocortisone [Proctozone-HC 2.5% Crm] 1 gm TOP ASDIRECTED PRN 01/15/21 14:29 Patient Status [ADT] Routine Vital Signs [RC] PFP Ice Therapy [OM.PC] Per Unit Routine Perineal Care [OM.PC] Per Unit Routine Peripheral IV Discontinue [OM.PC] Routine Sitz Bath [OM.PC] Per Unit Routine 01/15/21 14:31 Acetaminophen [Tylenol Bulk Bottle] 325 - 650 mg PO Q4H PRN Ibuprofen [Motrin Bulk Bottle] 600 mg PO Q6H PRN 01/15/21 Dinner Regular Diet [DIET] - Assessment Assessment:: 01/15/21 with shoulder dystocia at 39 2/7 weeks, GDM and gestational hypertension female 01/16/21 Feels great, mood happy Breast soft, nipples tender, baby has a upper lip tie cramps mild, flow light voiding without problems hgb 11.3 wants to go home - Plan Plan:: 01/15/21 30 year old 39 2/7 week IUP with PROM this morning at 0630. GDM, stable well controlled Gestation hypertension, protein in urine this morning, normal PLT will draw PIH labs Plan reactive nst bpp6/8 movement 810 miso orally 25 mcg every 2 hours until active labor epidural when ready plan for vaginal delivery 01/15/21 routine cares support 24-48 hour stay 01/16/21 Home today see me 6 weeks for a post visit
== END 2021-01-16 15:45 | disposition home or self-care (01) | DRG 807 ==
LOC: JP.OB 06:58 → OBSVTOIN 14:00 → JP.OB 14:00 → JP.MS 14:01
PROVIDERS: ADMIT Nurse Practitioner Family; ATTEND Nurse Practitioner Family
PROC: 10E0XZZ Delivery of Products of Conception, External Approach (ICD-10-PCS; principal; 2021-01-15)
PROC: 10907ZC Drainage of Amniotic Fluid, Therapeutic from Products of Conception, Via Natural or Artificial Opening (ICD-10-PCS; 2021-01-15)
PROC: 3E0P7VZ Introduction of Hormone into Female Reproductive, Via Natural or Artificial Opening (ICD-10-PCS; 2021-01-15)
PROC: 3E0R3BZ Introduction of Anesthetic Agent into Spinal Canal, Percutaneous Approach (ICD-10-PCS; 2021-01-15)
DX: O13.4 Gestational [pregnancy-induced] hypertension without significant proteinuria, complicating childbirth (principal); Z37.0 Single live birth; Z3A.39 39 weeks gestation of pregnancy; Z20.822 Contact with and (suspected) exposure to COVID-19; O42.02 Full-term premature rupture of membranes, onset of labor within 24 hours of rupture; O66.0 Obstructed labor due to shoulder dystocia; Z88.1 Allergy status to other antibiotic agents; Z88.8 Allergy status to other drugs, medicaments and biological substances; Z79.82 Long term (current) use of aspirin; Z87.891 Personal history of nicotine dependence; O24.429 Gestational diabetes mellitus in childbirth, unspecified control
CPT/HCPCS: 36415; 51702; 76818; 76818-26; 80053; 81001; 82570; 83615; 83735; 84112; 84156; 84550; 85025; 85027; A9270-GY; J2405; J2590; J2795; J7120; U0002

== ENCOUNTER 2021-09-29 18:30 | Emergency (ER) | payer MEDICAID ==
--- NOTE | 2021-09-29 21:05 | EDM.PDOC ---
ED HPI GENERAL MEDICAL PROBLEM - General Chief Complaint: General Stated Complaint: POSSIBLE MASTITIS Time Seen by Provider: 09/29/21 19:17 Source of Information: Reports: Patient History Limitations: Reports: No Limitations - History of Present Illness INITIAL COMMENTS - FREE TEXT/NARRATIVE: 31 y.o. Female presents to the emergency department left breast pain. She is currently lactating and breast-feeding her 8-month-old infant. Over the past 12 to 24 hours, she has developed pain in the left breast associated with swelling, warmth, tenderness, and high fever. Temperature has been as high as 103. She has noticed a change in the appearance of her breast milk. She has had pain relief and fever relief with ibuprofen.'s dose of ibuprofen was 6 hours ago. This was 600 mg. Also used acetaminophen this morning. Other symptoms include headache and myalgias. Patient has chills. She has malaise. Patient has anaphylactic reaction to amoxicillin. No history of MRSA. Left Breast Pain Score (Numeric/FACES): 5 - Related Data Allergies Allergy/AdvReac Type Severity Reaction Status Date / Time amoxicillin Allergy Severe Anaphylactic Verified 09/29/21 21:00 Shock sumatriptan Allergy Severe Anaphylactic Verified 09/29/21 21:00 Shock Home Meds: Home Meds Vits #93/Iron Fum/FA [ Formula Tablet] 1 each PO DAILY 01/15/21 [History] Past Medical History QA TEST LEAD History: Reports: Psychiatric History: Reports: Depression Endocrine/Metabolic History: Reports: Hypothyroidism - Infectious Disease History Infectious Disease History: Reports: Chicken Pox - Past Surgical History Head Surgeries/Procedures: Reports: None HEENT Surgical History: Reports: Other (See Below) Other HEENT Surgeries/Procedures: wisdom teeth removal Social & Family History - Family History Family Medical History: Unobtainable - Tobacco Use Tobacco Use Status *Q: Never Tobacco User - Caffeine Use Caffeine Use: Reports: None - Recreational Drug Use Recreational Drug Use: No ED ROS GENERAL - Review of Systems Review Of Systems: See Below Constitutional: Reports: Fever, Chills, Malaise HEENT: Reports: No Symptoms Respiratory: Reports: No Symptoms Cardiovascular: Reports: No Symptoms GI/Abdominal: Reports: Other (poor appetite.) Musculoskeletal: Reports: Muscle Pain Skin: Reports: Other (Redness of left breast.) Neurological: Reports: Headache ED EXAM, GENERAL - Physical Exam Exam: See Below Free Text/Narrative:: Neuro: Patient is alert and in no acute distress. HEENT: PERRL. Conjunctiva clear. Oral mucosa moist. Neck: No lymphadenopathy. Lungs: Clear to auscultation. Cardiovascular: Rapid rate, regular rhythm. Breast: Exam with lighting adviser. Left breast is swollen, slightly red, tender to palpation along the superior aspect. There is palpable axillary lymphadenopathy in the left axilla. No discharge from the nipple. No necrotizing infection. Extremities: Warm and well-perfused. Exam Limited By: No Limitations Course - Vital Signs Last Recorded V/S: Last Vital Signs Temp 97.6 F 09/29/21 20:56 Pulse 103 H 09/29/21 20:56 Resp 18 09/29/21 20:56 BP 123/76 09/29/21 20:56 Pulse Ox 97 09/29/21 20:56 Departure - Departure Time of Disposition: 21:23 Disposition: Home, Self-Care 01 Condition: Good Clinical Impression: Mastitis, left, acute - Discharge Information *PRESCRIPTION DRUG MONITORING PROGRAM REVIEWED*: Not Applicable *COPY OF PRESCRIPTION DRUG MONITORING REPORT IN PATIENT ABDULAZIZ: Not Applicable Referrals: Nichole Melara CNM [Primary Care Provider] - Forms: ED Department Discharge Additional Instructions: May apply warm compress. Recommend pumping to drain left breast. Continue breast-feeding on the right. Take antibiotics as directed. Clindamycin 450 mg 3 times daily for 7 to 10 days. Monitor for clinical improvement within the next 24 to 48 hours. If not improved, return to the ED or present to the clinic. May continue acetaminophen or ibuprofen for pain and fevers as needed. Sepsis Event Note (ED) - Evaluation Sepsis Screening Result: No Definite Risk - Focused Exam Vital Signs: Vital Signs Temp Pulse Resp BP Pulse Ox 09/29/21 20:56 97.6 F 103 H 18 123/76 97 - Problem List & Annotations (1) Mastitis, left, acute SNOMED Code(s): 37221731 Code(s): N61.0 - MASTITIS WITHOUT ABSCESS Status: Acute Current Visit: Yes - Problem List Review Problem List Initiated/Reviewed/Updated: Yes - Assessment/Plan Assessment:: 1. Mastitis, left breast. This is associated with breast-feeding. Patient does not have any particular risk factors for MRSA infection. Plan: She will be discharged to home on clindamycin. She had anaphylactic reaction to beta-lactam's. We will encourage probiotic intake. Recommend analgesics for pain and fever reducers as needed. She should have follow-up if not improving and return to the emergency department if symptoms worsen acutely. No evidence for abscess on clinical exam.
== END 2021-09-29 21:42 | disposition home or self-care (01) ==
LOC: JP.ED 18:30
DX: N61.0 Mastitis without abscess (principal); Z88.0 Allergy status to penicillin; Z88.8 Allergy status to other drugs, medicaments and biological substances
CPT/HCPCS: 99283